=== PATIENT | male | born 1980 | race Caucasian/White ===

== ENCOUNTER 2017-06-23 22:43 | Emergency (ER) | payer SELFPAY ==
[~2017-06-23] VITALS: Ht 182.9 cm; Wt 126.5 kg
[2017-06-23 22:52] VITALS: Ht 182.9 cm; Wt 126.5 kg
[2017-06-24 01:39] VITALS: BP 133/80
== END 2017-06-24 01:39 | disposition home or self-care (01) ==
LOC: ED 22:43
DX: S13.4XXA Sprain of ligaments of cervical spine, initial encounter (principal); S39.012A Strain of muscle, fascia and tendon of lower back, initial encounter; V49.9XXA Car occupant (driver) (passenger) injured in unspecified traffic accident, initial encounter; Y93.89 Activity, other specified; Y92.89 Other specified places as the place of occurrence of the external cause; Y99.8 Other external cause status